=== PATIENT | male | born 1995 | race Caucasian/White ===

== ENCOUNTER 2020-04-29 12:36 | Emergency (ER) | payer OTHER ==
[~2020-04-29] VITALS: Ht 177.8 cm; Wt 104.3 kg
[~2020-04-29 12:36] MED LIST: AZIT250 PO; CEFU250 PO; CODGUAEL PO; DIPH50 PO; FAMO40 PO; Hair, Skin & N1 EACH PO; METPRE4DP PO; NAPR500 PO; OXYACE5T PO; PROM12.5S PR; PROM25 PO; Sudafed30 MG PO
[2020-04-29] MEDS ORDERED: Floxin10 ML LEFTEAR (14:35)
== END 2020-04-29 14:43 | disposition home or self-care (01) ==
LOC: ER 12:36
DX: H61.22 Impacted cerumen, left ear (principal)
CPT/HCPCS: 69209; 99282-25; J0500